=== PATIENT | female | born 1945 | race Caucasian/White ===

== ENCOUNTER 2025-03-26 05:53 | Day surgery (SDC) | payer MEDICARE ==
[2025-03-26] MEDS ORDERED: ATOR40TA PO (06:37)
[2025-03-26] MEDS ORDERED: MELO7.5 PO (06:38)
== END 2025-03-26 23:00 | disposition home or self-care (01) ==
LOC: CT 05:53
DX: D49.511 Neoplasm of unspecified behavior of right kidney (principal)
CPT/HCPCS: 50593; 77013; 80048; 85025; 99152; 99153; C2618; J2250; J2405; J3010; J7030; Q9967